=== PATIENT | female | born 1970 | race Caucasian/White ===

== ENCOUNTER 2019-06-20 07:07 | Day surgery (SDC) | payer OTHER ==
[2019-06-13 14:57] VITALS: BMI 24.6
[2019-06-20] MEDS ORDERED: ceFAZolin SODIUM 1 GM VIAL ONE ×2 (09:39→10:33)
[2019-06-20] MEDS ORDERED: PROPOFOL 20 ML ONE ×2 (09:41→10:18)
[2019-06-20] MEDS ORDERED: MIDAZOLAM HCL 2 MG/2 ML SINGLE DOSE VIAL ONE ×2 (09:41)
[2019-06-20] MEDS ORDERED: GENTAMICIN SO4 80 MG/2 ML VIAL ONE (09:52)
[2019-06-20] MEDS ORDERED: ROCURONIUM BROMIDE 50 MG/5 ML SYRINGE ONE (10:09)
[2019-06-20] MEDS ORDERED: BUPIVACAINE HCL/PF 2.5 MG/ML - 30 ML VIAL IJ ONE (10:32)
[2019-06-20] MEDS ORDERED: fentaNYL CITRATE 250 MCG/5 ML VIAL ONE (10:32)
[2019-06-20] MEDS ORDERED: ONDANSETRON 4 MG/2 ML VIAL ONE ×2 (10:51→13:19)
[2019-06-20] MEDS ORDERED: DEXAMETHASONE SOD PHOSPHATE 4 MG/1 ML VIAL ONE (10:51)
[2019-06-20] MEDS ORDERED: PHENYLEPHRINE HCL 10 MG/1 ML SINGLE DOSE VIAL ONE (11:22)
[2019-06-20] MEDS ORDERED: NEOSTIGMINE METHYLSULFATE 0.5 MG/ML - 10 ML MDV ONE (13:24)
[2019-06-20] MEDS ORDERED: oxyCODONE HCL 5 MG TABLET PO PRN ×3 (13:54→14:13)
[2019-06-20] MEDS ORDERED: ONDANSETRON 4 MG/2 ML VIAL IVPUSH PRN (13:54)
[2019-06-20] MEDS ORDERED: LACTATED RINGERS SOLUTION 1,000 ML IV SCH ×2 (14:00→14:15)
[2019-06-20] MEDS ORDERED: BUDESONIDE/FORMETEROL FUMARATE 160/4.5 mcg INHALER IH PRN (14:13)
[2019-06-20] MEDS ORDERED: ONDANSETRON 4 MG/2 ML VIAL IVPB PRN (14:13)
[2019-06-20] MEDS ORDERED: ALBUTEROL SO4 8 GM HFA INHALER IH PRN (14:13)
[2019-06-20] MEDS ORDERED: HYDROmorphone HCL 0.5 MG/0.5 ML SYRINGE ONE (14:32)
[2019-06-20] MEDS ORDERED: ACETAMINOPHEN INJECTION 100 ML IVPB ONE (14:33)
[2019-06-20] MEDS ORDERED: ACETAMINOPHEN 1000 MG/100 ML VIAL (NON FORMULARY) IVPB ONE (14:35)
[2019-06-20 16:11] VITALS: TEMP 98
[2019-06-20] MEDS ORDERED: oxyCODONE HCL 5 MG TABLET ONE (16:15)
[2019-06-20 17:35] VITALS: BP 138/76; PULSE 98
--- NOTE | 2019-06-20 20:04 | OP ---
DATE OF OPERATION: 06/20/2019 TITLE OF PROCEDURE: Bilateral breast capsulotomy with right-sided removal of intact breast implant; left-sided breast capsulotomy with ruptured left breast implant; bilateral capsular release for Bang grade IV capsular contracture; bilateral replacement of breast implants with moderate profile, saline, smooth, round breast implants; and abdominal section scar excision and closure. ATTENDING SURGEON: Derrek Limon MD ASSISTANTS: None. ANESTHESIA: General endotracheal anesthesia. The patient is seen in the holding area. She is marked, awake, aware of all incisions and resulting scars. Risks, benefits, and alternatives and limitations of the operation are discussed, understood, and agreed to proceed. Patient was brought to the operating room, placed in supine position. A pillow was placed below the knees. All pressure points were carefully padded. The patient is given a gram of Ancef preoperatively. She was then prepped and draped in standard surgical fashion. A timeout was called. Patient, procedure, sites, and sides are verified at this point. It should be noted that sequential compression stockings and GISSEL hose were on legs bilaterally. An incision was made in the existing scar from her previous breast surgery, and dissection carried down to the level of the periprosthetic breast capsule. Capsulotomy was performed. The intact implant on the patient's right side was removed. It was confirmed to be a moderate profile, saline, smooth, round implant. The base width is measured at 11 cm. A modern generation implant of the same size and dimensions was available. Attention was then directed towards the contralateral side where a mirror-image procedure was performed on this side. However, on the left side, a deflated implant was encountered, which was removed. It was the same style and size implant as on the right. Capsulotomies were performed laterally on both sides and inferiorly on the left side where the inframammary fold was noted to be a centimeter higher than on the right. New implants were brought onto the field with new gloves. They were saline implants that were filled in vivo with a closed filling system. They were Natrelle style 68MP-240 implants. They were filled to 260 mL with the closed filling system on both sides. Patient was brought to a seated upright position where there was excellent symmetry of position and size and shape. Fill tubes were removed. The anterior valves were closed. Closure was performed of the capsule with a running locking 3-0 Monocryl suture. The dermis was approximated with a series of interrupted, buried deep dermal 3-0 Monocryl, followed by running subcuticular 3-0 Monocryl suture. Attention was then directed toward the scar which was excised in its entirety. The skin superiorly was undermined slightly to allow for a smooth-contour closure. The closure was then performed over a size 10 flat SARBJIT drain, secured with a 2-0 silk drain suture. The closure was then performed with a series of interrupted deep 2-0 Vicryl suture, followed by a series of interrupted, buried, deep dermal, 3-0 Monocryl suture, followed by running subcuticular 3-0 Monocryl suture. Drain was placed to bulb suction. Dressings were applied. A surgical bra and abdominal binder were placed. Patient awoken from anesthesia, having tolerated procedure well, transferred to recovery without complication. Omkar [id number]
--- NOTE | 2019-06-24 17:51 | PATH ---
Surgical Pathology Report Patient Name: MARIBEL MONROE [facility]. Rec. #: [id number] /Age/Gender: 1970 (Age: 49) / F Account: [id number] Location: [facility] AMBULATORY Taken: 06/20/2019 Received: 06/20/2019 Reported: 06/24/2019 Physicians: Derrek Limon Specimen(s) Received A: LEFT BREAST IMPLANT B: RIGHT BREAST IMPLANT Clinical History Deflated left breast implant Final Diagnosis A. BREAST IMPLANT, LEFT, REMOVAL: BREAST IMPLANT. MACROSCOPIC DIAGNOSIS. B. BREAST IMPLANT, RIGHT, REMOVAL: BREAST IMPLANT. MACROSCOPIC DIAGNOSIS. Electronically Signed Gladys Bruno M.D. Gross Description A. Received fresh labeled "left breast implant," is an 11.5 cm in diameter clear, rubbery, deflated breast implant. No definitive defect is identified grossly. No soft tissue is present. No sections are submitted, gross only. B. Received fresh labeled "right breast implant," is a 10.5 cm diameter x 3 cm in depth clear, rubbery, intact breast implant. No soft tissue is present. No sections are submitted, gross only. DL/06/21/2019 saudi06/21/2019
== END 2019-06-20 17:15 | disposition home or self-care (01) ==
LOC: FASU 07:07
PROVIDERS: ATTEND Plastic Surgery
PROC: 0HRV0JZ Replacement of Bilateral Breast with Synthetic Substitute, Open Approach (ICD-10-PCS; 2019-06-20)
PROC: 0HPU0JZ Removal of Synthetic Substitute from Left Breast, Open Approach (ICD-10-PCS; 2019-06-20)
PROC: 0HPT0JZ Removal of Synthetic Substitute from Right Breast, Open Approach (ICD-10-PCS; 2019-06-20)
PROC: 0HRV0JZ Replacement of Bilateral Breast with Synthetic Substitute, Open Approach (ICD-10-PCS; 2019-06-20)
PROC: 0HB7XZZ Excision of Abdomen Skin, External Approach (ICD-10-PCS; 2019-06-20)
PROC: 0HNV0ZZ Release Bilateral Breast, Open Approach (ICD-10-PCS; principal; 2019-06-20 10:45)
DX: T85.41XA Breakdown (mechanical) of breast prosthesis and implant, initial encounter (principal); T85.44XA Capsular contracture of breast implant, initial encounter; Y82.8 Other medical devices associated with adverse incidents; Y92.9 Unspecified place or not applicable; L90.5 Scar conditions and fibrosis of skin
CPT/HCPCS: 84703; 88300-TC; 94760; J0131